=== PATIENT | female | born 1945 | race Caucasian/White ===

== ENCOUNTER → 2017-10-11 | Day surgery (SDC) | payer MEDICARE, BC ==
[~2017-10-11] MED LIST: Lidocaine 1% PF 5 ML VIAL ONE; Prevnar 13-Val Conj/PF 0.5 ML SYRINGE IM ONE; Sodium Bicarbonate 2.5 MEQ/5 ML VIAL ONE
--- NOTE | 2017-10-11 10:43 | ULT ---
ULTRASOUND GUIDED THYROID FINE NEEDLE ASPIRATION BIOPSY: 10/11/2017 HISTORY: A 72-year-old female with a solitary right thyroid nodule. TECHNIQUE: Signed informed consent obtained. Midline and right neck skin prepared and draped in the usual steri le fashion with Chloraprep and OR towels. A 25 gauge needle was used to apply buffered Lidocaine sup erficially and deeply, under ultrasound guidance. Under ultrasound guidance, a series of four 25 gau ge needles, mounted on 5 mL syringes, were used to aspirate the contents of the hypoechoic, solid nod ule in the right lobe of the thyroid gland x 4. Each needle and syringe sample was given to the path ology department technologist for placement in Cytospin. The patient tolerated the procedure well. No complications. IMPRESSION: Technically successful 25 gauge needle fine needle aspiration biopsy x4 passes, of the right thyroid nodule. POS: [id number]
[2017-10-11 11:08] VITALS: TEMP 97.7
== END ==
LOC: ULT 07:40
PROVIDERS: ATTEND Radiology Neuroradiology
PROC: 0G9H3ZX Drainage of Right Thyroid Gland Lobe, Percutaneous Approach, Diagnostic (ICD-10-PCS; principal; 2017-10-11)
DX: E04.1 Nontoxic single thyroid nodule (principal); Z79.899 Other long term (current) drug therapy; Z88.5 Allergy status to narcotic agent
CPT/HCPCS: 10022; 76942; 88173; J2001

== ENCOUNTER 2022-04-11 11:01 | Outpatient (CLI) | payer MEDICARE | END 2022-04-11 11:02 | disposition home or self-care (01) | LOC: BICMAMMO 11:01 | PROVIDERS: ATTEND Nurse Practitioner | DX: Z12.31 Encounter for screening mammogram for malignant neoplasm of breast (principal); Z85.528 Personal history of other malignant neoplasm of kidney; Z85.41 Personal history of malignant neoplasm of cervix uteri | CPT/HCPCS: 77063; 77067 ==